=== PATIENT | female | born 1965 | race Caucasian/White ===

== ENCOUNTER → 2016-10-19 17:43 | Outpatient (CLI) | payer MEDICARE ==
[2016-06-09 08:26] VITALS: BMI 22.6
[~2016-10-19 17:43] MED LIST: ADDERALL 30 MG30 MG PO; BAYER CHEWABLE81 MG PO; DEPAKOTE500 MG PO; DEXTROAMPHETAMI10 M1 PO; EFFIENT10 MG PO; HYDROCODONE-APA1 TAB PO; NORCO 10/325 TA1 TA1 PO; PHENERGAN25 M1 PO; PLAVIX75 MG PO; PROZAC40 MG PO; RANEXA500 MG PO; SEROQUEL300 MG PO; SOMA350 MG PO; TYLENOL W/CODEI1 TAB PO; VALIUM5 MG PO; VITAMIN D10000 UNI1 PO; ZANAFLEX4 MG PO
== END | disposition home or self-care (01) ==
LOC: D.MAMMO 08:30
DX: M54.12 Radiculopathy, cervical region (principal); N63 Unspecified lump in breast; R92.8 Other abnormal and inconclusive findings on diagnostic imaging of breast

== ENCOUNTER → 2016-11-11 09:26 | Outpatient (CLI) | payer MEDICARE ==
[2016-06-09 08:26] VITALS: BMI 22.6
== END | disposition home or self-care (01) ==
LOC: D.CT 09:26
DX: R10.9 Unspecified abdominal pain (principal)

== ENCOUNTER → 2017-01-20 14:49 | Outpatient (CLI) | payer MEDICARE ==
[2016-06-09 08:26] VITALS: BMI 22.6
== END | disposition home or self-care (01) ==
LOC: D.MRI 14:49
DX: M87.151 Osteonecrosis due to drugs, right femur (principal); M87.152 Osteonecrosis due to drugs, left femur

== ENCOUNTER → 2017-03-24 18:15 | Outpatient (CLI) | payer MEDICARE ==
[2016-06-09 08:26] VITALS: BMI 22.6
== END | disposition home or self-care (01) ==
LOC: D.LABREF 18:15
DX: M87.9 Osteonecrosis, unspecified (principal); Z11.8 Encounter for screening for other infectious and parasitic diseases

== ENCOUNTER 2017-04-07 10:00 | Inpatient (IN) | payer MEDICARE ==
[~2017-04-07 10:00] MED LIST changes: +CARAFATE1 G PO; +LINZESS145 MCG PO; +PEPCID40 MG PO; +VITAMIN B-12500 MC1 PO
[2017-04-07 11:18] LABS: APPEARANCE CLEAR (CLEAR); BILIRUBIN NEGATIVE (NEGATIVE); COLOR YELLOW (YELLOW); GLUCOSE NEGATIVE (NEGATIVE); KETONE NEGATIVE (NEGATIVE); NITRITE NEGATIVE (NEGATIVE); PROTEIN NEGATIVE (NEGATIVE); SPECIFIC GRAVITY 1.015 (1.005-1.020); UROBILINOGEN NORMAL (NORMAL)
[2017-04-07 11:22] LABS: ANION GAP 12.8 mmol/L (8-16); CALCIUM 9.2 mg/dL (8.5-10.1); CARBON DIOXIDE 23.9 mmol/L (21.0-32.0); CREATININE - SERUM 0.9 mg/dL (0.6-1.3); POTASSIUM - SERUM 4.7 mmol/L (3.5-5.1)
[2017-04-07 11:24] LABS: BASOPHILS 0.2 % (0-2); EOSINOPHILS 1.7 % (0-7); HEMATOCRIT 38.6 % (36.0-48.0); HEMOGLOBIN 13.1 g/dL (12-16); LYMPHOCYTES 48.5 % (15-50); MCH 32.4 pg (26.0-34.0); MCHC 33.9 g/dL (31.0-37.0); MCV 95.5 fL (80.0-100.0); MONOCYTES 6.1 % (2-11); NEUTROPHILS 43.5 % (40-80); PLATELET COUNT 147 10x3/uL (130-400); RBC 4.04 10x6/uL (4.00-5.40); RDW 12.2 % (11.5-14.5); WBC 5.4 10x3/uL (4.8-10.8)
[2017-04-07 11:26] LABS: INR 0.85 (0.85-1.17); PROTIME 11.5 SECONDS (11.6-15.0)
[2017-04-07 11:27] LABS: APTT 25.5 SECONDS (22.8-39.4)
[2017-04-12] VITALS (8 sets, daily range): BP systolic 113–132; BP diastolic 58–86; BMI 21.8
--- NOTE | 2017-04-12 13:50 | NUR ---
RECIEVED PT FROM RECOVERY ROOM AT THIS TIME. ASSESSMENT DONE PER FLOWSHEET. BED IN LOW POSITION AND CALL LIGHT WITHIN REACH. WILL CONTINUE TO MONITOR.
--- NOTE | 2017-04-12 20:18 | NUR ---
REC'D.IN BED AAO/X3.INSTRUCTED ON INCENT. KOFI.WITH ACTIVE DEMONSTRATION.DRSG. DRY AND INTACT TO LEFT HIP.SCD'S INTACT. FOOT PINK AND WARM PEDAL PULSE PRESENT WIGGLES TOES AND DORSIFLEXES.DENIES NUMBNESS TINGLING CALF PAIN OR TENDERNESS WILL CONTINUE TO MONITOR FOR ANY CHGES. IN NEUROVASCULAR STATUS AND FOLLOW CURRENT PLAN OF CARE.
[2017-04-13] VITALS: BP 151/79
--- NOTE | 2017-04-13 01:21 | NUR ---
RN NOTE: PT RESTING IN SEMI RAZA'S POSITION WITH EYES CLOSED AND UNLABORED BREATHING. IV IN LEFT HAND PATENT WITH 1/2 NS INFUSING AT 100 ML / HR, AND DILAUDID VIBRATOR EQUIPMENT TESTER FOR PAIN CONTROL. SCD'S IN PLACE ON BLE. DRESSING ON LEFT HIP CLEAN AND DRY. WILL CONTINUE TO MONITOR FOR NEEDS. CALL LIGHT WITHIN REACH.
[2017-04-13 04:00] VITALS: BP 118/65
[2017-04-13 05:44] LABS: HEMATOCRIT 35.1 % (36.0-48.0); HEMOGLOBIN 11.6 g/dL (12-16); MCH 31.9 pg (26.0-34.0); MCV 96.4 fL (80.0-100.0); MEAN PLATELET VOLUME 12.4 fL (7.4-10.4); RBC 3.64 10x6/uL (4.00-5.40); RDW 12.1 % (11.5-14.5); WBC 6.6 10x3/uL (4.8-10.8)
--- NOTE | 2017-04-13 07:20 | NUR ---
PATIENT RECEIVED IN MID RAZA POSITION ALERT AND RESTING QUIETLY. NO SIGNS OF DISTRESS NOTED. PROVIDED WITH SODA PER REQUEST. DENIES FURTHER NEEDS. SIDE RAILS UP X2. BED IN LOW POSITION. CALL LIGHT IN REACH. BED ALARM ON.
--- NOTE | 2017-04-13 08:05 | NUR ---
PATIENT ALERT IN BED. NO SIGNS OF DISTRESS NOTED. SCHEDULED MEDICATION ADMINISTERED WELL PRN ZOFRAN. DENIES NEEDS. ENCOURAGED USE OF INCENTIVE SPIROMETER. SCDS ON BILATERALLY. SIDE RAILS UP X2. BED IN LOW POSITION. CALL LIGHT IN REACH.
[2017-04-13 08:20] VITALS: BP 134/86
--- NOTE | 2017-04-13 10:00 | NUR ---
PATIENT SITTING UP IN CHAIR ALERT. NO SIGNS OF DISTRESS NOTED. STATES THAT STOMACH IS STARTING TO FEEL BETTER AFTER ZOFRAN. DENIES NEEDS. CALL LIGHT IN REACH.
[2017-04-13] MEDS ORDERED: BUPROPION HCL150 M1 PO (10:17)
--- NOTE | 2017-04-13 12:15 | NUR ---
REQUESTED AND GIVNE 4,G ZOFRAN PO FOR C/O NAUSEA. WILL MONITOR.
--- NOTE | 2017-04-13 12:45 | NUR ---
PER PT PATIENT VOMITING. ORDER OBTAINED TO GIVEN REGLAN AND IF IT DOESN'T WORK WITHIN FIRST HOUR TO BEGIN ZOFRAN DRIP. MEDICATION GIVEN. WILL CONTINUE TO MONITOR. ICE PACK TO LEFT HIP. DENIES NEEDS. BED IN LOW POSITION. CALL LIGHT IN REACH. BED ALARM ON.
[2017-04-13 12:47] VITALS: BP 111/69
--- NOTE | 2017-04-13 14:15 | NUR ---
PATIENT ALERT IN BED. STATES NAUSEA IS BETTER AFTER RECEIVING REGLAN. PROVIDED WITH BLANKET PER REQUEST. NO FURTHER NEEDS VOICED. SIDE RAILS UP X2. BED IN LOW POSITION. CALL LIGHT IN REACH.
--- NOTE | 2017-04-13 15:15 | NUR ---
ASSISTED UP TO BSC ASSIST X1. VOIDED WITHOUT DIFFICULTY. ASSISTED BACK TO BED. POSITIONED SELF FOR COMFORT. WELL TOLERATED. DENIES NEEDS. SIDE RAILS UP X2. BED IN LOW POSITION. CALL LIGHT REACH. SCD ON BILATERALLY. FAMILY PRESENT AT BEDSIDE.
[2017-04-13 15:54] VITALS: BP 111/64
--- NOTE | 2017-04-13 17:20 | NUR ---
PATIENT IN RIGHT LATERAL POSITION ALERT AND RESTING QUIETLY. ICE PACK PLACED TO LEFT HIP. DENIES NEEDS. SIDE RAILS UP X2. BED IN LOW POSITION. CALL LIGHT IN REACH. BED ALARM ON.
--- NOTE | 2017-04-13 18:32 | OP ---
PATIENT NAME: KEN CONTRERAS MEDICAL RECORD: [id number] :[birth year] LOCATION:[id number] ADMISSION DATE:04/12/17 SURGEON: BRITANY PARRA MD DATE OF OPERATION: 04/12/2017 PREOPERATIVE DIAGNOSIS: Avascular necrosis of the left hip with failed conservative therapy including but not limited to core decompression. PROCEDURE: Left total hip arthroplasty. SURGEON: Britany Parra MD ANESTHESIA: General. INTRAOPERATIVE COMPLICATIONS: None. SUMMARY OF PATHOLOGIC FINDINGS: The patient had early collapse consistent with the preoperative diagnosis. IMPLANTS USED: Anato hip system, size 4 stem with a Tritanium cup size 52. OPERATIVE SUMMARY IN DETAIL: After obtaining the appropriate preoperative orthopedic surgery consent as well as anesthetic consultation, evaluation, and clearance, the patient was brought to the operating room and placed on the operating table in supine position. After general laryngeal mask airway was administered, the patient was placed in a right lateral decubitus position. All pressure points were well padded to include down leg peroneal nerve pad as well as axillary roll. The patient was held firmly to the operating table using the vacuum pack suction system and strap. The left lower extremity and hip were then prepped and draped in routine sterile fashion. Curvilinear incision made over the greater trochanter, taken down to the level of the IT band, which was split in line with fibers of the IT band to reveal the gluteus medius minimus. They were reflected anteriorly. The hip capsule was split in line with that. The hip was dislocated and femoral neck cut was made using the Anato hip cutting guide. Acetabulum was exposed. Serial and sequential labrectomy was followed by reaming to a size 51, size [address] with good capture. Broaching was done for the Anato hip system, size 4 was felt to be the most appropriate for proximal fit and fill. Trials were undertaken. It was felt that a ceramic +2.5 head was the most appropriate for leg length. Having completed this, the ball was tamped into place with Bess taper. The hip was reduced, taken through range of motion and found to be stable in all planes. The capsule was closed with #2 Ethibond followed by reapproximation of the gluteus medius minimus back to the greater trochanter using #5 Ethibond transosseously. Having completed this, IT band was closed with #2 Ethibond followed by #1 Vicryl, 2-0 Vicryl and skin millie. Sterile dressings were applied. ESTIMATED BLOOD LOSS: 100 cc. The patient was awakened, taken to recovery room in stable condition. All final needle and sponge counts were correct. TRANSINT:[id number] Voice Confirmation ID: [id number] DOCUMENT ID: [id number] OPERATIVE REPORT [id number] KEN CONTRERAS MD, BRITANY SOMMER at 1832 CC: [id number] DICTATION DATE: 04/12/17 1253 RETAIL PRICING COORDINATOR: 04/12/17 1341 ADM IN [facility] [address] [place] [address]
[2017-04-13 20:00] VITALS: BP 117/67
--- NOTE | 2017-04-13 23:12 | NUR ---
REC'D. SITTING IN BED IN ERECT POSITION WITH SEVERAL VISITORS AT BEDSIDE.DRSG. DRY AND INTACT TO LEFT HIP ENCOURAGED TO CONTINUE TO USE INCENTIVE SPIROMETER Q 1HR. 10 TIMES WHILE AWAKE VOICES UNDERSTANDING. SCD'S INTACT WILL CONTINUE TO MONITOR FOR ANY CHGES. AND FOLLOW CURRENT PLAN OF CARE.
[2017-04-14] VITALS: BP 116/65
--- NOTE | 2017-04-14 03:00 | NUR ---
PT RESTING PEACEFULLY AT THIS TIME WITH NO SIGNS OF ACUTE DISTRESS NOTED. CALL LIGHT IN REACH. BED IN LOWEST POSITION. WILL CONT WITH POC.
[2017-04-14 04:00] VITALS: BP 93/66
[2017-04-14 05:39] LABS: HEMATOCRIT 33.4 % (36.0-48.0); HEMOGLOBIN 11.1 g/dL (12-16); MCHC 33.2 g/dL (31.0-37.0); MCV 96.3 fL (80.0-100.0); MEAN PLATELET VOLUME 12.7 fL (7.4-10.4); RBC 3.47 10x6/uL (4.00-5.40); RDW 12.1 % (11.5-14.5); WBC 5.4 10x3/uL (4.8-10.8)
--- NOTE | 2017-04-14 07:25 | NUR ---
PATIENT RECEIVED ALERT IN LOW RAZA POSITION. NO SIGNS OF DISTRESS NOTED. REQUESTING REGLAN. SIDE RAILS UP X2. BED IN LOW POSITION. CALL LIGHT IN REACH.
--- NOTE | 2017-04-14 07:45 | NUR ---
ALERT IN BED. REGLAN ADMINISTERED PER PRN ORDER WELL SCHEDULED MEDICATION GIVEN AT THIS TIME. DENIES FURTHER NEEDS. ENCOURAGED USE OF INCENTIVE SPIROMETER. SCD ON BILATERALLY. SIDE RAILS UP X2. BED IN LOW POSITION. CALL LIGHT IN REACH. BED ALARM ON.
[2017-04-14 08:00] VITALS: BP 116/61
--- NOTE | 2017-04-14 09:35 | NUR ---
PATIENT SITTING UP IN CHAIR ALERT. NO SIGNS OF DISTRESS NOTED. DENIES NEEDS. CALL LIGHT IN REACH.
--- NOTE | 2017-04-14 10:40 | NUR ---
Rehab Note- Acute Rehab Prescreen order recieved. The patient underwent a Left WHITLEY, post op day #2. Will follow at this time. Thank you for this referral! Lauren Castillo RN Clinical Liaison, [facility] Rehab
--- NOTE | 2017-04-14 12:25 | NUR ---
PATIENT SITTING UP IN CHAIR AT BEDSIDE. NO SIGNS OF DISTRESS NOTED. DENEIS NEEDS. CALL LIGHT AND ANIMAL CARE TAKER BUTTON IN REACH.
[2017-04-14 12:26] VITALS: BP 118/59
--- NOTE | 2017-04-14 15:11 | NUR ---
Patient Name: KEN CONTRERAS Admission Status: Elective Accout number: [id number] Admission Date: 04-12-2017 : 1965 Admission Diagnosis:OSTEONECROSIS, UNSPECIFIED Attending: BRITANY PARRA Current LOS: 2 Anticipated DC Date: Planned Disposition: Inpatient Rehab Primary Insurance: MEDICARE A & B Discharge Planning Comments: CM met with patient to assess discharge planning needs. Patient lives independently with her father (Dad). Patient states that her dad will be the one to drive her home at discharge. Patient would like to do in patient rehab. Referral sent. Patient has a bedside commode, but will need a walker prior to discharge. CM will make sure she has a walker before discharge. Patient does not have and steps in her home. CM will continue to follow and assist with discharge planning needs. PCP: Carlos Conrad (cheryl) [phone] Navigation Teacher: Brit Fatima * Is the patient Alert and Oriented? Yes 0 * How many steps to enter\exit or inside your home? 0 0 * PCP CARLOS 0 * [facility] 0 * Preadmission Environment Home with Family 0 * ADLs Independent 0 * Equipment Bedside Commode 0 * List name and contact numbers for known caregivers / representatives who currently or will assist patient after discharge: KATELYN BERUMEN ([facility]) [phone] 0 * Community resources currently utilized None 0 * Additional services required to return to the preadmission environment? Yes 0 * Can the patient safely return to the preadmission environment? Yes 0 * Has this patient been hospitalized within the prior 30 days at any hospital? No 0 Grand Total: 0
[2017-04-14 16:07] VITALS: BP 120/73
--- NOTE | 2017-04-14 16:15 | NUR ---
PATIENT IN LOW RAZA POSITION RESTING WITH EYES CLOSED. RESPIRATIONS EVEN AND UNLABORED. SIDE RAILS UP X2. BED IN LOW POSITION. CALL LIGHT AND DOCUMENT REVIEWER BUTTON IN REACH.
[2017-04-14 20:00] VITALS: BP 111/63
--- NOTE | 2017-04-14 23:10 | NUR ---
REC'D IN BED FAMILY AT BEDSIDE.DRSG. DRY AND INTACT LEFT HIP. FOOT PINK WARM PEDAL PULSE PRESENT. WIGGLES TOES AND DORSIFLEXES WITHOUT DIFFICULTY TURNED TO LEFT SIDE WITH MINIMAL ASSIST.WILL CONTINUE TO MONITOR FOR ANY CHGES. IN NEUROVASCULAR STATUS AND FOLLOW CURRENT PLAN OF CARE. SCD'S INTACT
[2017-04-15] VITALS: BP 120/67
[2017-04-15 04:00] VITALS: BP 131/60
--- NOTE | 2017-04-15 05:35 | NUR ---
RESTING IN BED WITH EYES CLOSED. NO S/S OF DISTRESS OBSERVED. LEFT HAND IV WITH 1/2 NS RUNNING AT KVO. TECHNICAL AID IN PLACE.
--- NOTE | 2017-04-15 07:43 | NUR ---
AWAKE AND ALERT WITH BED IN LOWEST POSITION, SRX2, WHEELS LOCKED AND BED ALARM ON. RESPIRATIONS EVEN AND NON LABORED. PROVIDED PT WITH ICE WATER. CALL LIGHT IN REACH, WILL CONTINUE WITH PLAN OF CARE.
[2017-04-15 07:51] VITALS: BP 137/72
--- NOTE | 2017-04-15 08:33 | NUR ---
PRN REGLAN ADMINISTERED AT THIS TIME FOR COMPLAINTS OF NAUSEA WITHOUT EMESIS. IV TO RIGHT HAND LEAKING AROUND INSERTION SITE AND BECOMING SWOLLEN. IV D/C WITH CATH TIP INTACT AND ORDER OBTAINED FOR PHENERGAN PO IF NEEDED FOR NAUSEA. PT VERBALIZED UNDERSTANDING. CALL LIGHT IN REACH. WILL CONTINUE WITH PLAN OF CARE.
--- NOTE | 2017-04-15 09:28 | NUR ---
TREE PLANTER DISCONTINUED AND SCHEDULED MEDICATIONS ADMINISTERED AT THIS TIME WELL PRN PERCOCET FOR PAIN 12/12. DENIES FURTHER NEEDS AT PRESENT TIME. CALL LIGHT IN REACH, WILL CONTINUE WITH PLAN OF CARE.
--- NOTE | 2017-04-15 10:04 | NUR ---
PRN PHENERGAN ADMINISTERED FOR CONTINUED COMPLAINTS OF NAUSEA. NO VOMITING PRESENT. UP IN CHAIR PER PHYSICAL THERAPY. CALL LIGHT IN REACH, WILL CONTINUE [facility] PLAN OF CARE.
--- NOTE | 2017-04-15 14:31 | NUR ---
Rehab Note- The patient had an elective surgery and has not had post op complications and does not have a medical management for an acute inpatient rehab stay. Thank you for this referral! Rajwinder Castillo RN Clinical Liaison, [facility] Rehab
--- NOTE | 2017-04-15 15:12 | NUR ---
PATIENT BEING DISCHARGED TODAY HOME WITH HER FATHER. PATIENT NOW STATES SHE HAS 2 WALKERS AT HOME. SHE ORIGINALLY WANTED TO GO TO INPATIENT REHAB, PATIENT WAS DENIED THERE I OFFERED HER OPTIONS TO GO TO A SKILLED FACILITY SHE WANTED TO SPEAK TO SOMEONE ABOUT THAT. EVITA CAME AND SPOKE WITH HER [facility] WHICH IS CLOSE TO WHERE SHE LIVES. PATIENT DECIDED THAT SHE WOULD LIKE TO GO HOME AND DO OUTPATIENT PT AT [facility]. [facility] WILL BE CALLING HER WITH HER OUTPATIENT PT [facility] APPOINTMENT. PATIENT STATED THAT HER DAD WILL BE ABLE TO TAKE HER TO AND FROM HER APPOINTMENTS. CM WILL CONTINUE TO ASSIST WITH DISCHARGE PLANNING NEEDS NEEDED.
[2017-04-15] MEDS ORDERED: PHENERGAN25 M1 PO (15:50)
[2017-04-15] MEDS ORDERED: PERCOCET 10/3251 TA1 PO (15:51)
[2017-04-15] MEDS ORDERED: ELIQUIS2.5 MG PO (15:51)
--- NOTE | 2017-04-15 16:27 | NUR ---
OT NOTE: PT COMPLETED BED MOB WITH SUPV. PT COMPLETED BUE STRENGTHENING EXS FOR INCREASED AX TOLERANCE. PT COMPLETED SIMPLE ADL TASKS. THANK YOU, RHONDA AGUAYO/Spencer
--- NOTE | 2017-04-15 17:42 | NUR ---
DISCHARGE INSTRUCTIONS GIVEN TO PT, QUESTIONS ANSWERED, IV REMOVED EARLIER TODAY, DISCHARGED PER WC WITH BELONGINGS
== END 2017-04-15 17:44 | disposition home or self-care (01) | DRG 470 ==
LOC: D.SDCHOLD 04-12 09:16 → D.MS 04-12 09:16 → D.SDCHOLD 04-12 09:30 → D.MS 04-12 13:26
PROVIDERS: ADMIT Orthopaedic Surgery
PROC: 0SRB04Z Replacement of Left Hip Joint with Ceramic on Polyethylene Synthetic Substitute, Open Approach (ICD-10-PCS; principal; 2017-04-12 09:30)
DX: M87.9 Osteonecrosis, unspecified (principal); F17.203 Nicotine dependence unspecified, with withdrawal; F41.9 Anxiety disorder, unspecified; F32.9 Major depressive disorder, single episode, unspecified

== ENCOUNTER 2017-07-13 08:42 | Outpatient (CLI) | payer MEDICARE ==
[~2017-07-13] VITALS: Ht 167.6 cm; Wt 58.2 kg
--- NOTE | ~2017-07-13 | HEMODYNAMI ---
PATIENT:KEN CONTRERAS MEDICAL RECORD: [id number] : 65 LOCATION:[facility] ADMISSION DATE: 07/13/17 Generatedon:07/13/201710:49 Patient name: KEN CONTRERAS Patient #: [id number] SSN: DO B: 1965 Date of study: 07/13/2017 Page: Of Hemodynamic Procedure Report Patient Data Patient Demographics Procedure consent was obtained First Name: KEN Gender: Female Last Name: DIANE : 1965 Middle Initial: LIDYA Age: 51 year(s) Patient #: [id number] Race: Additional ID: [id number] Contact details Address: [place] [address] State: [place] City: [place] Zip code: [address] Past Medical History History of disease Date Diagnosis Comments CAD Allergies Allergen Reaction Date Comments Reported Other allergy 04/06/2016 ultram, relafen Other allergy 07/13/2017 tramadol, relafen Natural rubber 07/13/2017 and latex Admission Admission Data Admission Date: 07/13/2017 Admission Time: 8:42 Procedure Procedure Types Cath Procedure Diagnostic Procedure C [facility] w/Coronaries Miscellaneous Procedures Moderate Sedation up to 15 minutes Peripheral Cath Diagnostic Procedure Cath Peripheral Laejw-Hgzxxrx-Get-Off Procedure Description Procedure Date Procedure Date: 07/13/2017 Procedure Start Time: 10:35 Procedure End Time: 10:49 Procedure Staff Name Function Joe Guthrie MD Performing Physician Catalina Barrow RT Monitor Shahbaz Boothe RT Scrub Rainer Ramirez RN Nurse Procedure Data Cath Procedure Fluoroscopy Diagnostic fluoroscopy Total fluoroscopy Time: 1.5 time: 1.5 min min Diagnostic fluoroscopy Total fluoroscopy dose: 283 dose: 283 mGy mGy Contrast Material Contrast Material Type Amount (ml) Isovue 300 85 Entry Location Entry Primary Successful Side Size Upsize Upsize Entry Closure Succes sful Closure Location (Fr) 1 (Fr) 2 (Fr) Remarks Device Remarks Femoral Right 5 Fr Exoseal artery Estimated blood loss: 5 ml Diagnostic catheters Device Type Used For End Catheter Placement MULTIPACK Pigtail 5 Fr LV Angiography catheter MULTIPACK Pigtail 5 Fr Abdominal catheter aortogram with runoff MULTIPACK JL 4.0 5Fr Left Coronary catheter Angiography MULTIPACK 3DRC 5Fr Right Coronary catheter Angiography Procedure Complications No complications Procedure Medications Medication Administration Route Dosage 0.9% NaCl I.V. 100 ml/hr Oxygen NC 2 l/min Heparin Flush Bag added to field 2 bags (1000units/500ml NS) Lidocaine 2% added to field 20 Versed I.V. 2 mg Fentanyl I.V. 100 mcg Versed I.V. 1 mg Fentanyl I.V. 25 mcg Hemodynamics Rest Heart Rate: 74 (bpm) Pressure Samples Time Site Value (mmHg) Purpose Heart Use Rate(bpm) 10:41 LV 103/-11,8 Snapshot 77 Snapshots Pre Cath Intra NCS Post Cath Vital Signs Time Heart Resp SPO2 etCO2 NIBP Rhythm Pain Sedation Rate (ipm) (%) (mmHg) (mmHg) Status Level (bpm) 10:13:46 72 18 100 14.3 120/82(97) NSR 0 (11) 10(A) , No pain 10:18:21 69 16 100 12 117/76(92) NSR 0 (11) 10(A) , No pain 10:22:55 68 22 100 23.4 117/77(94) NSR 0 (11) 10(A) , No pain 10:27:30 71 17 99 19.6 105/73(86) NSR 0 (11) 10(A) , No pain 10:32:02 70 14 100 0 96/65(79) NSR 0 (11) 10(A) , No pain 10:37:03 73 13 100 26.3 108/70(84) NSR 0 (11) 9(A) , No pain 10:41:36 76 17 100 25.6 105/71(86) NSR 0 (11) 10(A) , No pain 10:46:06 77 19 100 14.3 103/72(82) NSR 0 (11) 10(A) , No pain Medications Time Medication Route Dose Verified Delivered Reason Notes Effe ctiveness by by 10:21:17 0.9% NaCl I.V. 100 Rainer Rainer Per ml/hr Ashley Ramirez physician RN RN 10:21:29 Oxygen NC 2 Rainer Rainer Per l/min Ashley Ramirez physician RN RN 10:21:43 Heparin Flush added 2 Rainer Rainer used for Bag to bags Loryocasta Ramirez procedure (1000units/500ml field RN RN NS) 10:21:57 Lidocaine 2% added 20ml Rainer Rainer for local to vial Lorigan Lorigan anesthetic field RN RN 10:30:45 Versed I.V. 2 mg Rainer Rainer for Lorigan Lorigan sedation RN RN 10:30:56 Fentanyl I.V. 100 Rainer Rainer for mcg Lorigan Lorigan sedation RN RN 10:36:02 Versed I.V. 1 mg Rainer Rainer for Lorigan Lorigan sedation RN RN 10:40:59 Fentanyl I.V. 25 Rainer Rainer for mcg Lorigan Lorigan sedation RN bookmobile driver Log Time Note 9:50:00 Rainer Ramirez RN sent for patient. Start room use. 10:07:07 Time tracking: Regular hours 10:07:11 Plan of Care:Hemodynamics will remain stable., Cardiac rhythm will remain stable., Comfort level will be maintained., Respiratory function will remain adequate., Patient/ family verbilizes understanding of procedure., Procedure tolerated without complication., Recovers from procedure without complications.. 10:07:16 Patient received from Pre/Post Procedure Room to CCL 1 Alert and oriented. Tansferred to table in Supine position. 10:07:18 Warm blankets applied, and tierney hugger turned on for patient comfort. 10:07:19 Correct patient and procedure confirmed by team. 10:07:20 Signed procedure consent form obtained from patient. 10:07:21 ECG and BP/O2 sat monitors applied to patient. 10:12:58 Vital chart was started 10:14:46 Full Disclosure recording started 10:16:23 H&P Date Dictated: 07/01/2017 Within 30 days and on chart., H&P Addendum completed by physician on day of procedure. (MUST COMPLETE FOR ALL OUTPATIENTS). 10:16:24 Pre-procedure instructions explained to patient. 10:16:25 Pre-op teaching completed and patient verbalized understanding. 10:16:27 Family in patients room. 10:16:29 Patient NPO since Midnight. 10:16:50 Patient allergic to Other allergytramadol, relafen 10:17:02 Patient allergic to Natural rubber and latex 10:17:17 Is the patient allergic to Iodine/contrast media? No. 10:17:18 Is patient on blood thinner?Yes 10:17:21 ACC The patient was administered the following blood thiners within the last 24 hours: ACCPlavix 10:17:24 Patient diabetic? No. 10:17:26 Previous problem with sedation/anesthesia? No ? 10:17:27 Snore? Yes 10:17:28 Sleep apnea? No 10:17:29 Deviated septum? No 10:17:30 Opens mouth fully? Yes 10:17:30 Sticks out tongue? Yes 10:17:32 Airway obstruction? Yes Asthma 10:17:34 Dentures? Yes In 10:17:49 Pre procedure: right dorsailis pedis pulse 1+ Palpable, but thready & weak; easily obliterated 10:21:17 0.9% NaCl 100 ml/hr I.V. was administered by Rainer Ramirez RN; Per physician; 10:21:29 Oxygen 2 l/min NC was administered by Rainer Ramirez RN; Per physician; 10:21:43 Heparin Flush Bag (1000units/500ml NS) 2 bags added to field was administered by Rainer Ramirez RN; used for procedure; 10:21:57 Lidocaine 2% 20ml vial added to field was administered by Rainer Ramirez RN; for local anesthetic; 10:23:52 Pre procedure: left dorsailis pedis pulse 1+ Palpable, but thready & weak; easily obliterated 10:23:57 Patient pain scale 0/10 ?. 10:24:03 IV patent on arrival in left hand with 0.9% NaCl at [facility]. 10:24:07 Lab results completed and on chart. 10:24:10 Bilateral groins area was prepped with chlora-prep and draped in sterile fashion 10:24:11 Alarms reviewed by R. N. 10:24:11 Sharps counted by scrub and verified by R.N. 10:24:14 Use device set Femoral Dx 10:24:15 ACIST Syringe (44960) opened to sterile field. 10:24:15 Bag Decanter (2002S) opened to sterile field. 10:24:16 Medline Cath Pack ([id number]) opened to sterile field. 10:24:16 SHEATH 5FR Hurlock (LPY903) opened to sterile field. 10:24:17 DIAGNOSTIC WIRE .035 260cm J wire (992477) opened to sterile field. 10:24:18 ACIST Hand Control (55738) opened to sterile field. 10:24:19 ACIST Manifold (97000) opened to sterile field. 10:24:19 DIAGNOSTIC Multipack 5Fr catheter set ([id number]) opened to sterile field. 10:24:20 Tegaderm 4 x 4 (1626W) opened to sterile field. 10:24:21 PERCUTANEOUS ENTRY 19GA needle opened to sterile field. 10:29:01 Zero performed for pressure channel P1 10:29:08 Baseline sample Acquired. 10:29:38 Final Timeout: patient, procedure, and site verified with staff and physician. All members of the team are in agreement. 10:29:43 Right groin site verified by team. 10:29:54 Physical assessment completed. ASA score P 2 - A patient with mild systemic disease as per Joe Guthrie MD. 10:29:57 Sedation plan: IV Moderate Sedation Medication:Versed, Fentanyl 10:30:45 Versed 2 mg I.V. was administered by Rainer Ramirez RN; for sedation; 10:30:56 Fentanyl 100 mcg I.V. was administered by Rainer Ramirez RN; for sedation; 10:35:47 Procedure started. 10:35:52 Local anesthetic to right femoral artery with Lidocaine 2% by Joe Guthrie MD.INITIAL ACCESS ONLY 10:36:02 Versed 1 mg I.V. was administered by Rainer Ramirez RN; for sedation; 10:40:59 Fentanyl 25 mcg I.V. was administered by Rainer Ramirez RN; for sedation; 10:41:01 A 5 Fr sheath was inserted into the Right Femoral artery 10:41:22 A MULTIPACK Pigtail 5 Fr catheter was advanced over the wire and used for LV Angiography. 10:41:38 LV gram done using WOODARD 10:41:39 LV hemodynamics recorded. 10:41:42 Injector settings: Ml/sec: 10, Volume: 20, 10:41:51 A MULTIPACK Pigtail 5 Fr catheter was advanced over the wire and used for Abdominal aortogram with runoff. 10:42:37 Catheter removed. 10:43:42 A MULTIPACK JL 4.0 5Fr catheter was advanced over the wire and used for Left Coronary Angiography. 10:44:18 Catheter removed. 10:44:32 A MULTIPACK 3DRC 5Fr catheter was advanced over the wire and used for Right Coronary Angiography. 10:45:01 Catheter removed. 10:45:03 EXOSEAL 5Fr (EX500) opened to sterile field. 10:45:16 Sheath removed intact; hemostasis achieved with Exoseal to the Right Femoral artery. 10:45:18 Procedure ended.(Physican Out) 10:45:27 Fluoroscopy time 01.50 minutes. 10:45:31 Fluoroscopy dose: 283 mGy 10:45:31 Flurop Dose total: 283 10:45:36 Contrast amount:Isovue 300 85ml. 10:45:39 Sharps counted by scrub and verified by R.N. 10:45:40 Insertion/operative site no bleeding no hematoma. 10:45:42 Post-op/insertion site Right Femoral artery dressed using a 4 x 4 and Tegaderm. 10:45:46 Post right femoral artery:stable, soft, clean and dry 10:45:48 Post Procedure Pulses reassessed and unchanged 10:45:51 Post-procedure physical assessment completed. ASA score P 2 - A patient with mild systemic disease as per Joe Guthrie MD. 10:45:53 Post procedure rhythm: unchanged. 10:45:55 Estimated blood loss: 5 ml 10:45:57 Patient needs reinforcement of post procedure teaching. 10:45:58 Post procedure instruction explained to patient.Patient verbalizes understanding. 10:46:13 Procedure type changed to Cath procedure, Diagnostic procedure, LHC, LHC w/Coronaries, Miscellaneous Procedures, Moderate Sedation up to 15 minutes, Peripheral Cath Diagnostic Procedure, Cath Peripheral, Bvhoa-Mexbfhm-Pvb-Off 10:46:18 Procedure Complication : No complications 10:46:20 See physician's report for complete and final results. 10:46:40 Procedure and supply charges have been captured, reviewed, submitted and are correct. 10:49:14 Vital chart was stopped 10:49:16 Report given to Pre/Post Procedure Room. 10:49:26 Patient transfered to Pre/Post Procedure Room with Stretcher. 10:49:29 Procedure ended. 10:49:29 Full Disclosure recording stopped 10:49:33 End room use (Document Last) Device Usage Item Name Manufacture Quantity Catalog Hospital Part Current Minimal Lot# / Number Charge Number Stock Stock Serial# Code ACIST Acist 1 41032 932755 235389 071399 20 Syringe Medical (55575) Systems Inc Bag Decanter Microtek 1 2001S 953300 99940 219125 5 (2001S) Medical Inc. Medline Cath Cardinal 1 [id number] 564717 87374 285163 5 Pack Health ([id number]) SHEATH 5FR Terumo 1 [id number] 144940 798886 416953 40 Hurlock (GZM162) DIAGNOSTIC St Matt 1 297699 397957 694451 963711 30 WIRE .035 260cm J wire (623895) ACIST Hand Acist 1 73315 078588 597440 497846 5 Control Medical (16104) Systems Inc ACIST Acist 1 14125 184815 413303 450904 5 Manifold Medical (47472) Systems Inc DIAGNOSTIC Cardinal 1 BT1946 327048 95423 464522 30 Multipack Health 5Fr catheter set (HC1358) Tegaderm 4 x 3M 1 1626W 599184 190773 270379 5 4 (1626W) PERCUTANEOUS Cook Medical 1 [id number] 072431 284429 5 ENTRY 19GA needle MULTIPACK Cardinal 1 456643 5 Pigtail 5 Fr Health catheter MULTIPACK JL Cardinal 1 [id number] 5 4.0 5Fr Health catheter MULTIPACK Cardinal 1 806262 5 3DRC 5Fr Health catheter EXOSEAL 5Fr Cardinal 1 EX500 897551 977029 436486 10 (EX500) Health Signature Audit Talmage Stage Time Signature Unsigned Intra-Procedure 07/13/2017 Catalina 10:49:41 AM Counts RT(R) Signatures Monitor : Catalina Signature : Counts RT Date : Time : [address] [address]
--- NOTE | ~2017-07-13 | OP ---
PATIENT NAME: KEN CONTRERAS MEDICAL RECORD: [id number] :65 LOCATION:[facility] ADMISSION DATE: SURGEON: ROSY DON MD DATE OF OPERATION: 07/13/2017 DATE OF SERVICE: 07/13/2017 PROCEDURES: 1. Left heart catheterization. 2. Selective coronary angiography. 3. Left ventriculogram. 4. Aortofemoral runoff. 5. Abdominal aortography. INDICATION: Angina, coronary artery disease, previous PTCA stent, claudication and peripheral vascular disease. PROCEDURE PERFORMED: After informed consent was obtained and after a detailed explanation of risks, benefits as well as alternative therapies, the patient elected to proceed with angiogram and heart catheterization. The right femoral area was prepped and draped in normal sterile fashion. The right femoral artery was cannulated via modified Seldinger technique with placement of 5-Citizen Of [place] sheath. All catheters exchanged through this sheath. FINDINGS: Abdominal aortography was performed. The catheter was pulled down for aortofemoral runoff. Abdominal aortography reveals no significant abdominal aortic disease. No dissection, no aneurysmal formation, no renal artery stenosis. RIGHT LEG: A. Iliac: The common internal and external iliacs have mild irregularities, no stenosis greater than 10%. No flow-limiting stenosis. B. Femoral system: The common superficial and deep femoral have mild irregularities, no stenosis greater than 10%. No flow-limiting stenosis. C. Popliteal and infrapopliteal vessels are widely patent, although small with good 3-vessel runoff to the foot. LEFT LEG: A. Iliac: The common internal and external iliacs have mild irregularities, no stenosis greater than 10%. No flow-limiting stenosis. B. Femoral system: The common superficial and deep femoral have mild irregularities, no stenosis greater than 10%. No flow-limiting stenosis. C. Popliteal and infrapopliteal vessels are widely patent, although small with good 3-vessel runoff to the foot. Left ventriculogram was performed in standard 30-degree WOODARD view, reveals good cardiac wall motion throughout all segments. Overall ejection fraction estimated 60%. SELECTIVE CORONARY ANGIOGRAPHY: 1. Left main showed no significant angiographic disease. 2. Left anterior descending has previously placed stent that is widely patent with no significant restenosis. No disease elsewise throughout the LAD or its branches. 3. Left circumflex shows moderate irregularities, but no flow-limiting OPERATIVE REPORT [id number] KEN CONTRERAS stenosis. 4. The right coronary has previously placed stents with no significant restenosis. No disease elsewise throughout the RCA or its branches. OVERALL IMPRESSION: 1. No significant restenosis of any of the previously placed stents. No new disease elsewise. 2. Minimal peripheral vascular disease is present, but no flow-limiting stenosis. Continue medical management of the coronary artery disease, peripheral vascular disease and risk factors. TRANSINT:[id number] Voice Confirmation ID: [id number] DOCUMENT ID: [id number] ROSY DON MD at 1323 CC: [id number] DICTATION DATE: 07/13/[address] ADMINISTRATOR: 07/13/17 1129 DEP CLI 07/13/17 [place] [id number] [place] [address]
[~2017-07-13 08:42] MED LIST changes: +BUPROPION HCL150 M1 PO; +ELIQUIS2.5 MG PO; +PERCOCET 10/3251 TA1 PO
[2017-07-13 09:18] VITALS: BP 143/79; Ht 167.6 cm; Wt 58.2 kg
[2017-07-13 09:32] LABS: HEMATOCRIT 41.9 % (36.0-48.0); HEMOGLOBIN 13.7 g/dL (12-16); MCH 30.2 pg (26.0-34.0); MCHC 32.7 g/dL (31.0-37.0); MCV 92.5 fL (80.0-100.0); MEAN PLATELET VOLUME 11.5 fL (7.4-10.4); RBC 4.53 10x6/uL (4.00-5.40); RDW 13.3 % (11.5-14.5); WBC 4.1 10x3/uL (4.8-10.8)
[2017-07-13 09:33] LABS: PLATELET COUNT 142 10x3/uL (130-400)
[2017-07-13] MEDS ORDERED: PLAVIX75 MG PO (09:35)
[2017-07-13 09:50] LABS: ANION GAP 17.5 mmol/L (8-16); CARBON DIOXIDE 24.7 mmol/L (21.0-32.0); CREATININE - SERUM 0.9 mg/dL (0.6-1.3); POTASSIUM - SERUM 4.2 mmol/L (3.5-5.1)
[2017-07-13 10:00] LABS: EOSINOPHILS 1 % (0-7); LYMPHOCYTES 54 % (15-50); MONOCYTES 2 % (2-11); NEUTROPHILS 43 % (40-80); PLATELET ESTIMATE NORMAL
== END 2017-07-13 12:55 | disposition home or self-care (01) ==
LOC: D.CATH 08:42
PROVIDERS: Internal Medicine Interventional Cardiology
DX: I25.119 Atherosclerotic heart disease of native coronary artery with unspecified angina pectoris (principal); I70.219 Atherosclerosis of native arteries of extremities with intermittent claudication, unspecified extremity; Z95.5 Presence of coronary angioplasty implant and graft; F17.200 Nicotine dependence, unspecified, uncomplicated; Z01.812 Encounter for preprocedural laboratory examination

== ENCOUNTER → 2017-07-29 10:23 | Outpatient (CLI) | payer MEDICARE ==
[2017-07-13 09:18] VITALS: BMI 20.7
== END | disposition home or self-care (01) ==
LOC: D.MRI 10:23
DX: M54.16 Radiculopathy, lumbar region (principal)

== ENCOUNTER → 2018-01-25 15:46 | Outpatient (CLI) | payer MEDICARE ==
[2017-07-13 09:18] VITALS: BMI 20.7
== END | disposition home or self-care (01) ==
LOC: D.MAMMO 12-29 16:00
DX: Z12.31 Encounter for screening mammogram for malignant neoplasm of breast (principal)

== ENCOUNTER → 2018-02-02 19:35 | Outpatient (CLI) | payer MEDICARE ==
[2017-07-13 09:18] VITALS: BMI 20.7
== END | disposition home or self-care (01) ==
LOC: D.MAMMO 09:30
DX: N63.21 Unspecified lump in the left breast, upper outer quadrant (principal)

== ENCOUNTER → 2018-03-11 13:19 | Outpatient (CLI) | payer MEDICARE ==
[2017-07-13 09:18] VITALS: BMI 20.7
== END | disposition home or self-care (01) ==
LOC: D.MRI 13:19
DX: M54.16 Radiculopathy, lumbar region (principal)

== ENCOUNTER → 2018-07-29 09:07 | Outpatient (CLI) | payer MEDICARE ==
[2017-07-13 09:18] VITALS: BMI 20.7
--- NOTE | 2018-08-05 12:11 | ST ---
PATIENT:KEN CONTRERAS MEDICAL RECORD: [id number] SEX: F LOCATION:[facility] ORDER #: ADMISSION DATE: 07/29/18 AGE OF PATIENT: 52 REFERRING PHYSICIAN: INTERPRETING PHYSICIAN: ROSY DON MD DATE OF SERVICE: 07/29/2018 PROCEDURE: Nuclear stress test. INDICATIONS: Angina, coronary artery disease, smoking history. PROCEDURE DETAILS: The patient was exercised on standard Lexiscan protocol with 33 mCi of sestamibi injected at peak stress, 10 mCi were used previously for rest images. FINDINGS: Gated SPECT reveals preserved ejection fraction at 68% with good wall motion and thickening and brightening throughout all segments. SPECT imaging Cardiolite was used as myocardial fusion agent. There is homogeneous uptake throughout all segments at rest and stress with no evidence of inducible ischemia or previous infarction. OVERALL IMPRESSION: 1. This is a normal nuclear stress test with no evidence of inducible ischemia or previous infarction. 2. Gated SPECT reveals a preserved ejection fraction at 68%. In this patient with ongoing symptomatology, the current scan does not suggest the presence of hemodynamically significant coronary artery disease. Evaluate noncardiac etiology of chest pain. TRANSINT:[id number] Voice Confirmation ID: [id number] DOCUMENT ID: [id number] ROSY DON MD at 1211 CC: HARVEY MALLORY [id number] DICTATION DATE: 07/29/18 1522 FIRE TECHNICIAN: 07/30/18 0000 DEP CLI 07/29/18 [place] [id number] [place] [id number]
== END | disposition home or self-care (01) ==
LOC: D.HCCARDIO 09:07
DX: I20.9 Angina pectoris, unspecified (principal)

== ENCOUNTER → 2019-05-12 09:19 | Outpatient (CLI) | payer MEDICARE ==
[2017-07-13 09:18] VITALS: BMI 20.7
--- NOTE | 2019-05-17 10:41 | ST ---
PATIENT:KEN CONTRERAS MEDICAL RECORD: [id number] SEX: F LOCATION:[facility] ORDER #: ADMISSION DATE: 05/12/19 AGE OF PATIENT: 53 REFERRING PHYSICIAN: INTERPRETING PHYSICIAN: ROSY DON MD DATE OF SERVICE: 05/12/2019 INDICATIONS: Angina and coronary artery disease, shortness of breath. She was exercised on standard Lexiscan protocol with 28 mCi of sestamibi injected at peak stress, 9 mCi used previously for rest images. FINDINGS: Gated SPECT reveals preserved ejection fraction at 69% with good wall motion and thickening and brightening throughout all segments. SPECT imaging Cardiolite was used as myocardial fusion agent. There is homogeneous uptake throughout all segments at rest and stress with no evidence of inducible ischemia or previous infarction. OVERALL IMPRESSION: 1. This is a normal nuclear stress test with no evidence of inducible ischemia or previous infarction. 2. Gated SPECT reveals a preserved ejection fraction at 69%. In this patient with ongoing symptomatology, the current scan does not suggest the presence of hemodynamically significant coronary artery disease. Evaluate noncardiac etiology of chest pain. TRANSINT:[id number] Voice Confirmation ID: [id number] DOCUMENT ID: [id number] ROSY DON MD at 1041 CC: KEMAL MANZANARES [id number] DICTATION DATE: 05/16/19 0856 OIL WINTERIZER: 05/17/19 0559 [facility] CLI 05/12/19 [facility] [address] [place] [address]
== END | disposition home or self-care (01) ==
LOC: D.HCCARDIO 09:19
PROVIDERS: ATTEND Internal Medicine Interventional Cardiology
DX: I25.119 Atherosclerotic heart disease of native coronary artery with unspecified angina pectoris (principal)

== ENCOUNTER 2020-02-14 11:52 | Emergency (ER) | payer MEDICARE ==
[~2020-02-14] VITALS: Ht 167.6 cm; Wt 55.0 kg
[2020-02-14 12:03] VITALS: Ht 167.6 cm; Wt 55.0 kg
[2020-02-14] MEDS ORDERED: GABAPENTIN100 MG PO (12:07)
[2020-02-14] MEDS ORDERED: LAMICTAL25 MG PO (12:08)
[2020-02-14] MEDS ORDERED: ZOLOFT25 MG PO (12:08)
[2020-02-14] MEDS ORDERED: LIPITOR20 MG PO (12:08)
[2020-02-14 12:35] LABS: CALC OSMOLALITY 277 mosm/kg (275-300); CALCIUM 9.8 mg/dL (8.5-10.1); CARBON DIOXIDE 26.3 mmol/L (21.0-32.0); CHLORIDE - SERUM 104 mmol/L (98-107); CREATININE - SERUM 1.1 mg/dL (0.6-1.3); GLUCOSE 99 mg/dL (74-106); POTASSIUM - SERUM 4.1 mmol/L (3.5-5.1); SODIUM 139 mmol/L (136-145); UREA NITROGEN 12 mg/dL (7-18); eGFR NON AFRICAN AMERICAN 55 mL/min (90-120)
[2020-02-14 12:47] LABS: BASOPHILS 0.1 % (0-2); EOSINOPHILS 1.5 % (0-7); HEMATOCRIT 41.8 % (36.0-48.0); HEMOGLOBIN 14.2 g/dL (12-16); IMMATURE GRANULOCYTES 0.1 % (0-5); LYMPHOCYTES 41.2 % (15-50); MCH 31.1 pg (26.0-34.0); MCV 91.5 fL (80.0-100.0); MEAN PLATELET VOLUME 11.8 fL (7.4-10.4); MONOCYTES 4.3 % (2-11); NEUTROPHILS 52.8 % (40-80); PLATELET COUNT 139 10x3/uL (130-400); RBC 4.57 10x6/uL (4.00-5.40); RDW 12.7 % (11.5-14.5); WBC 6.7 10x3/uL (4.8-10.8)
[2020-02-14 12:51] LABS: ALBUMIN 4.4 g/dL (3.4-5.0); ALKALINE PHOSPHATASE 90 U/L (30-120); ALT (SGPT) 16 U/L (10-68); CKMB 0.9 U/L (0.0-3.6); CREATINE KINASE 126 UL (21-215); MAGNESIUM - SERUM 2.3 mg/dL (1.8-2.4); PROTEIN - SERUM 7.6 g/dL (6.4-8.2); TROPONIN-I < 0.017 ng/mL (0.000-0.060)
[2020-02-14 13:23] LABS: APTT 26.6 SECONDS (22.8-39.4); INR 0.9 (0.85-1.17); PROTIME 12.1 SECONDS (11.6-15.0)
[2020-02-14 14:24] VITALS: BP 123/74
== END 2020-02-14 14:24 | disposition left against medical advice (07) ==
LOC: D.ER 11:52
PROVIDERS: Family Medicine
DX: I24.9 Acute ischemic heart disease, unspecified (principal); I25.10 Atherosclerotic heart disease of native coronary artery without angina pectoris; Z86.73 Personal history of transient ischemic attack (TIA), and cerebral infarction without residual deficits; R07.9 Chest pain, unspecified; R42 Dizziness and giddiness